=== PATIENT | male | born 1970 | race Caucasian/White ===

== ENCOUNTER 2017-04-09 12:12 | Emergency (ER) | payer OTHER ==
[~2017-04-09] VITALS: Ht 180.3 cm; Wt 120.0 kg
[2017-04-09 12:13] VITALS: BP 170/99; PULSE 112; RESP 24; TEMP 98.1; O2SAT 95
--- NOTE | 2017-04-09 14:59 | RADRPT ---
EXAM DATE/TIME: 04/09/2017 14:30 [facility] COMPARISON: No previous studies available for comparison. INDICATIONS : Back pain after falling off the back of a truck today. MEDICAL HISTORY : None. SURGICAL HISTORY : None. ENCOUNTER: Initial ACUITY: 1 day PAIN SCORE: 8/10 LOCATION: Bilateral chest FINDINGS: PA and lateral views of the chest demonstrate the lungs to be symmetrically aerated without evidence of mass, infiltrate or effusion. The cardiomediastinal contours are unremarkable. Osseous structure s are intact. CONCLUSION: No acute disease. Sean Espinoza MD on April 09, 2017 at 14:57 Board Certified Radiologist. This report was verified electronically.
--- NOTE | 2017-04-09 15:25 | RADRPT ---
EXAM DATE/TIME: 04/09/2017 15:06 [facility] COMPARISON: No previous studies available for comparison. INDICATIONS : Patient fell today with headaches. RADIATION DOSE: 56.35 CTDIvol (mGy) MEDICAL HISTORY : None SURGICAL HISTORY : None. ENCOUNTER: Initial ACUITY: 1 day PAIN SCALE: 7/10 LOCATION: Bilateral cranial TECHNIQUE: Multiple contiguous axial images were obtained of the head. Using automated exposure control and adj ustment of the mA and/or kV according to patient size, radiation dose was kept as low as reasonably a chievable to obtain optimal diagnostic quality images. DICOM format image data is available electro nically for review and comparison. FINDINGS: CEREBRUM: The ventricles are normal for age. No evidence of midline shift, mass lesion, hemorrhage or acute in farction. No extra-axial fluid collections are seen. POSTERIOR FOSSA: The cerebellum and brainstem are intact. The 4th ventricle is midline. The cerebellopontine angle i s unremarkable. EXTRACRANIAL: The visualized portion of the orbits is intact. SKULL: The calvaria is intact. No evidence of skull fracture. CONCLUSION: Negative for an acute process. Donnie Echeverria MD FACR on April 09, 2017 at 15:22 Board Certified Radiologist. This report was verified electronically.
--- NOTE | 2017-04-09 17:11 | RADRPT ---
EXAM DATE/TIME: 04/09/2017 15:10 [facility] COMPARISON: No previous studies available for comparison. INDICATIONS : Patient fell with neck pain. RADIATION DOSE: 39.2 CTDIvol (mGy) MEDICAL HISTORY : None SURGICAL HISTORY : None. ENCOUNTER: Initial ACUITY: 1 day PAIN SCALE: 5/10 LOCATION: Bilateral neck region. TECHNIQUE: Volumetric scanning of the cervical spine was performed. Multiplanar reconstructions in the sagittal, coronal and oblique axial planes were performed. Using automated exposure control and adjustment o f the mA and/or kV according to patient size, radiation dose was kept as low as reasonably achievable to obtain optimal diagnostic quality images. DICOM format image data is available electronically f or review and comparison. FINDINGS: Vertebral body heights are intact. Dens is intact. No acute bony fracture. Sagittal alignment is main tained. Facets are normally aligned. There is a normal C1-2 relationship. Visualized portions of the cerebellum and posterior fossa structures are unremarkable. Paravertebral soft tissues are normal in appearance. No significant prevertebral soft tissue swelling. Visualized lung apices are clear. CONCLUSION: 1. No acute fracture or subluxation. Keven Calderon MD on April 09, 2017 at 17:05 Board Certified Radiologist. This report was verified electronically.
[2017-04-09] MEDS ORDERED: ORPHENADRINE INJ 60 MG/2 ML AMP IM ONE (17:15)
[2017-04-09] MEDS ORDERED: KETOROLAC TROMETHAMINE 60 MG/2 ML (IM) VIAL IM ONE (17:15)
[2017-04-09 17:23] VITALS: BP 177/107; PULSE 86; RESP 17; O2SAT 95
[2017-04-09] MEDS ORDERED: IBUP800T23 PO (17:33)
[2017-04-09] MEDS ORDERED: CYCL1TAB29 PO (17:33)
--- NOTE | 2017-04-09 17:34 | PD ---
HPI Chief Complaint: Musculoskeletal Complaint Time Seen by Provider: 17:19 Travel History International Travel<30 days: No Contact w/Intl Traveler<30days: No Traveled to known affect area: No History of Present Illness HPI Patient is a 46-year-old male presenting to emergency for evaluation of neck and right groin pain. Patient states he fell off of his semi-trailer this morning falling approximately 4 feet. He denies any loss of consciousness or head injury. He states that his right leg pulled in the fall. The fall occurred approximate 7:30 this morning and he drove to [facility] from [place] after the fall. Patient states the pain is in his left neck, he states it felt as if it was burning. He denies any numbness, tingling, weakness in extremities, denies any bladder or bowel incontinence. He denies any significant past medical history. PFSH Past Medical History Medical History: Denies Significant Hx Diminished Hearing: No Tetanus Vaccination: > 5 Years Past Surgical History Surgical History: No Previous Surgery Social History Alcohol Use: Yes (occassionally) Tobacco Use: Yes (Pack every 3 days) Substance Use: No Allergies-Medications (Allergen,Severity, Reaction): Coded Allergies: No Known Allergies (Unverified , 04/09/17) Reported Meds & Prescriptions Reported Meds & Active Scripts Active Flexeril (Cyclobenzaprine HCl) 10 Mg Tab 10 Mg PO TID PRN 10 Days Ibuprofen 800 Mg Tab 800 Mg PO Q6HR PRN Review of Systems Except as stated in HPI: all other systems reviewed are Neg Eyes: No: Blurred Vision HENT: No: Headaches Cardiovascular: No: Chest Pain or Discomfort Respiratory: No: Shortness of Breath Gastrointestinal: No: Nausea, Abdominal Pain Musculoskeletal: Positive: Myalgias, Cramping, Pain Neurologic: No: Weakness, Dizziness, Syncope, Focal Abnormalities, Headache, Slurred Speech Physical Exam Narrative GENERAL: Obese, well-developed, alert male. Resting comfortably in no acute distress. SKIN: Warm and dry. HEAD: Atraumatic. Normocephalic. EYES: Pupils equal and round. No scleral icterus. No injection or drainage. ENT: No nasal bleeding or discharge. Mucous membranes pink and moist. NECK: Trachea midline. No JVD. No spinal tenderness or step-off noted, full range of motion with flexion, extension and rotation. CARDIOVASCULAR: Regular rate and rhythm. RESPIRATORY: No accessory muscle use. Clear to auscultation. Breath sounds equal bilaterally. GASTROINTESTINAL: Abdomen soft, non-tender, nondistended. Hepatic and splenic margins not palpable. MUSCULOSKELETAL: Extremities without clubbing, cyanosis, or edema. No obvious deformities. Tenderness to palpation in right inner thigh, no edema or ecchymosis noted. NEUROLOGICAL: Awake and alert. No obvious cranial nerve deficits. Motor grossly within normal limits. Five out of 5 muscle strength in the arms and legs. Normal speech. PSYCHIATRIC: Appropriate mood and affect; insight and judgment normal. Data Data Last Documented VS Vital Signs Date Time Temp Pulse Resp B/P Pulse Ox O2 Delivery O2 Flow Rate FiO2 04/09/17 17:42 97.8 86 17 174/102 95 04/09/17 17:[address] Brain W/O Iv Contrast(Rout) (04/09/17 ) Ct Cerv Spine W/O Contrast (04/09/17 ) Chest, Pa & Lat (04/09/17 ) Ketorolac Inj (Toradol Inj) (04/09/17 17:15) Orphenadrine Inj (Norflex Inj) (04/09/17 17:15) MDM Medical Decision Making Medical Screen Exam Complete: Yes Emergency Medical Condition: Yes Interpretation(s) Last Impressions Head CT 04/09/17 0000 Signed Impressions: Service Date/Time: Sunday, April 09, 2017 15:06 - CONCLUSION: Negative for an acute process. Donnie Echeverria MD FACR Chest X-Ray 04/09/17 0000 Signed Impressions: Service Date/Time: Sunday, April 09, 2017 14:30 - CONCLUSION: No acute disease. Sean Espinoza MD Cervical Spine CT 04/09/17 0000 Signed Impressions: Service Date/Time: Sunday, April 09, 2017 15:10 - CONCLUSION: 1. No acute fracture or subluxation. Keven Calderon MD Vital Signs Date Time Temp Pulse Resp B/P Pulse Ox O2 Delivery O2 Flow Rate FiO2 04/09/17 12:13 98.1 112 24 170/99 95 Room Air Differential Diagnosis Fracture versus sprain versus strain versus spasm versus other Narrative Course Patient is a 46-year-old male presenting to the emergency department for evaluation after he fell off of his semi-trailer this morning. No focal deficits noted. Imaging was ordered. Patient has been ambulatory. Chest x-ray with no acute disease CT of the cervical spine with no acute fracture or subluxation CT of the brain is negative for any acute process. Patient was given Toradol and Norflex in the emergency department. Pain and right groin appears more consistent with strain. Patient was encouraged to alternate heat and ice to affected area, continue range of motion exercises, take medications as directed. He was encouraged to follow-up with his primary doctor. He was encouraged return to emergency department for any new or worsening symptoms. Patient verbalizes understanding of these instructions. Patient is stable for discharge. Diagnosis Primary Impression: Groin strain Qualified Code: S76.211A - Groin strain, right, initial encounter Additional Impressions: Cervical muscle strain Qualified Code: S16.1XXA - Cervical muscle strain, initial encounter Cervical paraspinal muscle spasm Elevated blood pressure reading Referrals: Primary Care Physician 3 days Patient Instructions: General Instructions, Groin Strain (ED), Muscle Spasm (ED ), Muscle Strain (ED) Additional Instructions: Follow-up with your primary doctor Take medications as directed Alternate heat and ice to affected area, continue range of motion exercises, avoid bed rest, avoid exacerbating activities Return to emergency department for any new or worsening symptoms Flexeril may make you drowsy, do not operate machinery or drive until you know how you react to this medication Follow-up with your primary doctor, your blood pressure was elevated in the emergency department today. Med/Other Pt SpecificInfo: Prescription(s) given Scripts Cyclobenzaprine (Flexeril)10 Mg Tab10 Mg PO TID PRN (MUSCLE SPASM) 10 Days Ref 0 Prov:Rosette Grady 04/09/17 Ibuprofen 800 Mg [id number] Mg PO Q6HR PRN (PAIN) #40 TAB Ref 0 Prov:Rosette Grady 04/09/17 Disposition: 01 DISCHARGE HOME Condition: Stable Rosette Grady Apr 09, 2017 17:34
[2017-04-09 17:42] VITALS: BP 174/102; PULSE 86; RESP 17; TEMP 97.8; O2SAT 95
[2017-04-10] MEDS ORDERED: CYCL1TAB29 PO (14:44)
[2017-04-10] MEDS ORDERED: IBUP800T23 PO (14:44)
== END 2017-04-09 19:15 | disposition home or self-care (01) ==
LOC: NEPD 12:12
DX: S76.211A Strain of adductor muscle, fascia and tendon of right thigh, initial encounter (principal); S16.1XXA Strain of muscle, fascia and tendon at neck level, initial encounter; M62.838 Other muscle spasm; R03.0 Elevated blood-pressure reading, without diagnosis of hypertension; F17.200 Nicotine dependence, unspecified, uncomplicated; Z79.899 Other long term (current) drug therapy; W17.89XA Other fall from one level to another, initial encounter
CPT/HCPCS: 70450; 71020; 72125; 96372; 99285; J1885; J2360

== ENCOUNTER 2017-04-10 13:55 | Emergency (ER) | payer OTHER ==
[~2017-04-10] VITALS: Ht 180.3 cm; Wt 125.0 kg
[~2017-04-10 13:55] MED LIST: CYCL1TAB29 PO; IBUP800T23 PO
[2017-04-10 13:56] VITALS: BP 193/93; PULSE 95; RESP 20; TEMP 98.6; O2SAT 96
--- NOTE | 2017-04-10 14:12 | PD ---
Physical Exam Time Seen by Provider: 14:12 Narrative 46 y/o male fell yesterday after falling off semi-rig, here with persistent neck pain. Imaging performed yesterday was unremarkable. Vital signs reviewed. Seen at triage desk. Awaiting bed placement. Data Data Last Documented VS Vital Signs Date Time Temp Pulse Resp B/P Pulse Ox O2 Delivery O2 Flow Rate FiO2 04/10/17 13:56 98.6 95 20 193/93 96 Room Air [facility] Medical Record Reviewed: Yes Supervised Visit with ARI: Evan Smith Apr 10, 2017 14:12
[2017-04-10] MEDS ORDERED: CYCL1TAB29 PO (14:44)
[2017-04-10] MEDS ORDERED: IBUP800T23 PO (14:44)
--- NOTE | 2017-04-10 14:44 | PD ---
HPI Chief Complaint: Back/ Neck Pain or Injury Time Seen by Provider: 14:40 Travel History International Travel<30 days: No Contact w/Intl Traveler<30days: No Traveled to known affect area: No History of Present Illness HPI 46-year-old male presents to the emergency Department with complaint of continued right lateral neck pain after falling from his semitrailer yesterday morning. He was evaluated here and left without his discharge instructions and prescriptions. He is also requesting work injury paperwork to be filled out. Denies fever, vomiting. Reports having headache this morning. Says his right eye has been tearing. Reports pain is radiating down his right arm. Has been taking Aleve for symptom management. Has no other medical complaints. No known allergies. No other modifying factors or associated signs and symptoms. PFSH Past Medical History Diminished Hearing: No Social History Alcohol Use: Yes (occassionally) Tobacco Use: Yes (Pack every 3 days) Substance Use: No Allergies-Medications (Allergen,Severity, Reaction): Coded Allergies: No Known Allergies (Unverified , 04/09/17) Reported Meds & Prescriptions Reported Meds & Active Scripts Active Flexeril (Cyclobenzaprine HCl) 10 Mg Tab 10 Mg PO TID PRN 10 Days Ibuprofen 800 Mg Tab 800 Mg PO Q6HR PRN Review of Systems Except as stated in HPI: all other systems reviewed are Neg Physical Exam Narrative GENERAL: Well-nourished, well-developed male patient, in no acute distress; afebrile, nontoxic-appearing SKIN: Warm and dry. HEAD: Atraumatic. Normocephalic. EYES: Pupils equal and round. No scleral icterus. No injection or drainage. ENT: Mucosa pink and moist. Airway patent. NECK: Moving freely. Active rotation of the neck greater than 45 left and right. No midline point tenderness on palpation of the cervical spine. Producible tenderness to the right lateral musculature of the neck. No obvious deformities. CARDIOVASCULAR: Regular rate. RESPIRATORY: No accessory muscle use. GASTROINTESTINAL: Obese. MUSCULOSKELETAL: No obvious deformities. No clubbing. No cyanosis. No edema. Patient ambulatory in the room with a normal gait. BACK: No point tenderness on palpation of thoracic spine. No obvious deformities. NEUROLOGICAL: Awake and alert. Oriented 3. No obvious cranial nerve deficits. Motor grossly within normal limits. Normal speech. Moves all extremities. 5/5 strength to all extremities. Sensory intact. PSYCHIATRIC: Appropriate mood and affect; insight and judgment normal. Data Data Last Documented VS Vital Signs Date Time Temp Pulse Resp B/P Pulse Ox O2 Delivery O2 Flow Rate FiO2 04/10/17 13:56 98.6 95 20 193/93 96 Room Air MDM Medical Decision Making Medical Screen Exam Complete: Yes Emergency Medical Condition: Yes Medical Record Reviewed: Yes Differential Diagnosis Cervical muscle strain, muscle spasm, medical clearance Narrative Course 46-year-old male that was seen yesterday after injuring his neck after a fall from the back of his semi-trailer. Cervical CT, head CT, chest x-ray were all unremarkable during his visit yesterday. Apparently the patient left without his discharge instructions and prescriptions. He is also requesting paperwork be filled out for work-related injury secondary to him having personal insurance to cover his work-related injuries, therefore his injury is not covered under Workmen's Compensation. Paperwork was filled out per patient's request. Ibuprofen and Flexeril prescriptions were reprinted and provided to the patient. Instructed patient to follow up with primary care provider. Patient verbalizes understanding and agreement with treatment plan. Patient is medically cleared and stable for discharge. Discussed reasons to return to the emergency department. Patient agrees with treatment plan. The patients vital signs are stable and the patient is stable for outpatient follow-up and treatment. Patient discharged home, stable and in no acute distress. Diagnosis Primary Impression: Cervical muscle strain Qualified Code: S16.1XXD - Cervical muscle strain, subsequent encounter Referrals: Primary Care Physician Patient Instructions: Acute Neck Pain (ED), Cervical Neck Strain Exercises (GEN ), Cervical Strain (ED), General Instructions Departure Forms: Tests/Procedures, Work Release Special Instructions: Unable to return to work until cleared by primary care provider or other following physician Additional Instructions: Refer to previous discharge instructions Tylenol or ibuprofen as directed and as needed to reduce pain Flexeril as prescribed for muscle spasms Get adequate rest Ice and/or heating pad to affected area to reduce pain Avoid aggravating activity; increase activity as tolerated Follow-up with primary care provider Return to the emergency department immediately with worsening symptoms Med/Other Pt SpecificInfo: Prescription(s) given Scripts Cyclobenzaprine (Flexeril)10 Mg Tab10 Mg PO TID PRN (MUSCLE SPASM) 10 Days Ref 0 Prov:Zahira Nieves 04/10/17 Ibuprofen 800 Mg [id number] Mg PO Q6HR PRN (PAIN) #40 TAB Ref 0 Prov:Zahira Nieves 04/10/17 Disposition: 01 DISCHARGE HOME Condition: Stable Zahira Nieves Apr 10, 2017 14:44
== END 2017-04-10 15:02 | disposition home or self-care (01) ==
LOC: NEPK 13:55
DX: S16.1XXD Strain of muscle, fascia and tendon at neck level, subsequent encounter (principal); R51 Headache; F17.200 Nicotine dependence, unspecified, uncomplicated; W17.89XD Other fall from one level to another, subsequent encounter; Z79.899 Other long term (current) drug therapy
CPT/HCPCS: 99283